=== PATIENT | female | born 1960 | race Caucasian/White ===

== ENCOUNTER 2016-05-13 04:47 | Observation (INO) | payer OTHER ==
[2016-05-13 06:24] LABS: Hematocrit 28 % (35-47); Hemoglobin 9.3 g/dl (12.0-16.0); Mean Corpuscular HGB Conc 33 g/dl (31-36); Mean Corpuscular Hemoglobin 30 pg (27-31); Mean Corpuscular Volume 93 fL (80-97); Mean Platelet Volume 9 um3 (7.4-10.4); Red Blood Count 3.07 10^6/ul (4.0-5.4); Red Cell Distribution Width 15 % (10.5-15); White Blood Count 5.5 10^3/ul (3.5-10.8)
[2016-05-13] MEDS ORDERED: Zolpidem TAB* 10 MG PO PRN (06:33)
[2016-05-13] MEDS ORDERED: Acetaminophen TAB* 325 MG PO PRN (06:33)
[2016-05-13 07:08] LABS: BUN/Creatinine Ratio 4.1 (8-20); Calcium 8.9 mg/dL (8.6-10.3); EGFR African American 5.3 (>60); EGFR Non-African American 4.1 (>60)
[2016-05-13 07:22] LABS: Potassium 2.7 mmol/L (3.5-5.0)
[2016-05-13] MEDS: Heparin VIAL(*) 5000 UNITS/ML VIAL (FIVE THOUSAND) SUBCUT SCH ×2 (07:51→14:40)
[2016-05-13] MEDS ORDERED: Levothyroxine TAB* 100 MCG TAB PO SCH (08:00)
[2016-05-13] MEDS ORDERED: KCL 20 MEQ/100 ML IVPREMIX* 20 MEQ/100 ML BAG IV ONE (08:34)
[2016-05-13] MEDS ORDERED: Potassium Chlor TAB* 20 MEQ TAB.ER PO SCH (09:00)
[2016-05-13] MEDS ORDERED: Sevelamer TAB* 800 MG PO SCH ×2 (09:00)
[2016-05-13] MEDS ORDERED: Clopidogrel TAB* 75 MG PO SCH (09:00)
[2016-05-13] MEDS ORDERED: Calcitriol CAP* 0.25 MCG PO SCH (09:00)
[2016-05-13] MEDS ORDERED: CMC: Escitalopram (NF) 10 MG TAB PO SCH (09:00)
[2016-05-13] MEDS ORDERED: BuPROPion XL* 150 MG TAB.XL PO SCH (09:00)
[2016-05-13] MEDS ORDERED: Famotidine TAB* 20 MG PO SCH (09:00)
[2016-05-13] MEDS ORDERED: Ropinirole TAB* 0.5 MG TAB PO SCH (09:00)
[2016-05-13] MEDS ORDERED: Ranitidine TAB (NF) 150 MG TAB PO SCH (09:00)
[2016-05-13] MEDS: CMC: Midodrine (NF) 5 MG TAB PO SCH ×2 (09:28→14:39)
[2016-05-13] MEDS: KCL 10 MEQ/50 ML IVPREMIX* 10 MEQ/50 ML BAG IV SCH ×2 (09:29→11:02)
[2016-05-13] MEDS: Sevelamer TAB* 800 MG PO SCH ×2 (09:31→12:19)
[2016-05-13 12:06] LABS: BUN/Creatinine Ratio 4.1 (8-20); Calcium 8.7 mg/dL (8.6-10.3); EGFR African American 5.3 (>60); EGFR Non-African American 4.1 (>60); Potassium 2.8 mmol/L (3.5-5.0)
[2016-05-13 12:53] VITALS: BP 93/52
[2016-05-13] MEDS ORDERED: Potassium Chloride LIQUID* 20 MEQ PACKET PO SCH (13:50)
--- NOTE | 2016-05-13 14:00 | HP ---
HISTORY AND PHYSICAL: DATE OF ADMISSION/DICTATION: 05/13/16 CHIEF COMPLAINT: "My potassium is low." HISTORY OF PRESENT ILLNESS: The patient is a 55-year-old woman who presents to [facility] after going to her doctor's for lab work that morning and getting a call at 9:30 telling her potassium was too low and she had to go to ER for evaluation. There, she was found to have a potassium of 2.6 at [facility]. They gave her repletion, but it did not go up. Because they do not have facilities to take care of peritoneal dialysis patients, she was transferred to our hospital for further care. She had no physical complaints whatsoever and feels fine. No chest pain, no shortness of breath, no palpitations. No nausea, vomiting, or diarrhea. No increased frequency or pain on urination. PAST MEDICAL HISTORY: Noted for end-stage renal disease, requiring peritoneal dialysis; hypothyroidism; diabetes mellitus, diet controlled; hyperlipidemia; CVA x2; GERD; insomnia. PAST SURGICAL HISTORY: Significant for cholecystectomy. CURRENT MEDICATIONS: 1. Cipro 500 mg daily. 2. Bupropion 150 mg daily. 3. B-complex vitamin 1 mg in the morning. 3. Sevelamer 800 mg 3 times a day. 4. Ergocalciferol 50,000 units weekly. 5. Zolpidem 10 mg at bedtime. 6. Tylenol 650 mg every 6 hours as needed. 7. Midodrine 10 mg 3 times a day. 8. Plavix 75 mg daily. 9. Calcitriol 0.5 mcg daily. 10. Levothyroxine 100 mcg daily. 11. Lexapro 20 mg daily. 12. Ranitidine 150 mg twice daily. 13. Potassium chloride 20 mEq twice daily. 14. Requip 0.5 mg twice daily. 15. Simvastatin 40 mg at bedtime. ALLERGIES: She has an allergy to KEFLEX. FAMILY HISTORY: Mother in her 60s of heart problems. Father on a plane crash. SOCIAL HISTORY: No tobacco, quit many years ago. No alcohol or recreational drug use. She is on disability. She has 1 child, Ally Cordon, her daughter, who is her healthcare proxy. REVIEW OF SYSTEMS: A 14-point review of systems was completed with the patient. All pertinent positives and negatives are in the history of present illness, otherwise negative. PHYSICAL EXAMINATION GENERAL: A pleasant woman, lying in bed, in no acute distress. VITAL SIGNS: Temperature 97.9 degrees, heart rate 62 beats per minute, respiratory rate 16 breaths per minute, pulse ox 99%, and blood pressure 107/54. HEENT: Normocephalic, atraumatic. Pupils are equal, round, and reactive to light. Moist mucous membranes. NECK: Supple. No JVD, bruits, palpable thyroid, or lymphadenopathy. CHEST: Clear to auscultation and percussion bilaterally. CARDIOVASCULAR: S1, S2 appreciated. ABDOMEN: Positive bowel sounds in all 4 quadrants. Soft, nontender. EXTREMITIES: No cyanosis, clubbing, or edema. NEURO: Alert and oriented x3. Moves all extremities. SKIN: No rashes or abnormalities. LABORATORY DATA: White count 5.5, hemoglobin 9.3, hematocrit 28, platelets 174. Sodium 138, potassium 2.7, chloride 92, CO2 25, BUN 41, creatinine 9.90, glucose 86. ASSESSMENT AND PLAN: 1. Hypokalemia. It is low but not quite that low. If it even get over 3, she can be easily discharged to home, especially this is a dialysis patient. I will give her 20 mEq IV potassium and recheck it later. We will keep her on telemetry unit until then, but I expect she will be able to be discharged later today. 2. End-stage renal disease. Continue dialysis. 3. Hypothyroidism, stable. Continue Synthroid. 4. FEN. Renal diet. 5. DVT prophylaxis. Heparin subcu. 6. The patient is a full code. TIME SPENT: Over 75 minutes was spent on the H and P, more than 40 minutes was spent in direct [id number] contact with the patient in evaluation, physical exam, counseling, and coordination of care. CC: Dr. Rip Lei; Bernardino Ramirez * [id number]/[facility] #: [id number] MTDMelisa
[2016-05-13] MEDS ORDERED: Atorvastatin* 20 MG TAB PO SCH (21:00)
--- NOTE | 2016-05-14 03:17 | DS ---
DISCHARGE SUMMARY: DATE OF ADMISSION: 05/13/16 DATE OF DISCHARGE: 05/13/16 PRIMARY CARE PROVIDER: Dr. Murillo. INSTALLER APPRENTICE: Dr. Lei. CHIEF COMPLAINT: The patient was sent to [facility] by her primary care physician's office due to low potassium levels. PAST MEDICAL HISTORY: 1. End-stage renal disease, on peritoneal dialysis. 2. Hypertension. 3. Hyperlipidemia. 4. Hypothyroidism. 5. Obstructive sleep apnea. 6. 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 MEDICATIONS AT DISCHARGE: Include: 1. Potassium chloride 20 mEq p.o. daily. The patient was given a prescription for 7-day supply. 2. Ambien 10 mg at bedtime. 3. Simvastatin 40 mg at bedtime. 4. Renvela 800 mg 3 times a day. 5. Requip 0.5 mg b.i.d. 6. Zantac 150 mg daily. 7. Potassium chloride 20 mEq. 8. Midodrine 10 mg 3 times a day. 9. Synthroid 100 mcg daily. 10. Lexapro 20 mg daily. 11. Vitamin D 250,000 units p.o. weekly. 12. Plavix 75 mg daily. 13. Calcitriol 0.5 mcg daily. 14. Bupropion XL 150 mg daily. 15. Vitamin B complex with folic acid 1 mg daily. 16. Acetaminophen on a p.r.n. basis. LABORATORY DATA: Most recent laboratory values on 05/13/16 showed sodium of 128 , potassium of 2.8, chloride of 92, carbon dioxide 27, BUN 41, creatinine 9.9. That level of 2.8 of potassium was obtained before the patient's 20 mEq of potassium IV was given. The patient also afterwards was given 40 mEq of potassium p.o. prior to discharge. HOSPITALIZATION COURSE: Elba Cordon is a 55-year-old female with a history of end-stage renal disease, on pertinent dialysis who had a standard laboratory tests done as an outpatient. She was called by her primary care physician with the potassium reported at 2.6. She was directed to [facility] for evaluation. Here, apparently she was given 40 mEq of potassium chloride and was sent to our facility at [facility] for further evaluation. The patient was placed on observation. She received KCl 20 mg p.o. and 20 mEq IV of potassium chloride prior to her repeat lab work done, which showed potassium level of 2.8. The patient is going to be given another 20 mEq of potassium chloride IV and for the p.o. prior to discharge today. I briefly discussed the case with Dr. Lei, who is the patient's tavern car attendant. The patient is going to be discharged on potassium chloride 20 mEq p.o. daily for the next 7 days. She was advised to have another basic metabolic profile drawn on 05/16/16 to follow up on her hypokalemia. The patient stated that she used to be put on potassium supplements, but then it was discontinued in the fall of 2015. She did have a couple of weeks of diarrhea approximately a month ago, but that resolved. Currently, she is not complaining of anything that would contribute to her hypokalemia. She is to continue on regular diet and no low potassium diet as previously taken. PHYSICAL EXAMINATION: At the time of discharge, blood pressure of 93/52, heart rate of 78 and regular, respiratory rate 16, oxygen saturation 96% on room air, temperature 97.5. General: The patient is a very pleasant 55-year-old female, who is in no acute distress. Alert, awake, and oriented x3. HEENT: Head is atraumatic, normocephalic. Eyes: Pupils equal, reactive to light and accommodation. Lungs: Clear. Mucosa moist. Neck: Supple. No JVD, no bruits bilaterally. Cardiovascular: Regular rate and rhythm. No murmur. Respiratory: Clear to auscultation bilaterally. Abdomen: Soft, nontender. Bowel sounds present in all 4 quadrants. Pertinent dialysis catheter in place with no evidence of skin infection. Extremities: There is trace bilateral pedal edema. Pulses are +2 bilaterally. There is no clubbing or cyanosis. The patient has left proximal arm AV fistula that has thrombosed in the past and is negative for thrill. On neuro evaluation, speech clear. Cranial nerves II through XII grossly intact. Motor strength is 5/5 bilaterally. At discharge, the patient is recommended to follow up with primary care provider in 4 to 7 days. She is to have blood drawn on 05/16/16 in regards to her hypokalemia with results to be sent to Dr. Lei. Please note this is a short summary of the patient's hospital stay. Please refer to further medical record for details. CC: Dr. Lei; Dr. Murillo * [id number]/[facility] #: [id number] [facility] CENTERMelisa
[2016-05-14] MEDS ORDERED: Potassium Chloride LIQUID* 20 MEQ PACKET PO SCH (09:00)
== END 2016-05-13 15:14 | disposition home or self-care (01) ==
LOC: MEDTELE 04:47
PROVIDERS: ADMIT Internal Medicine; ATTEND Internal Medicine
DX: E87.6 Hypokalemia (principal); E11.9 Type 2 diabetes mellitus without complications; E78.5 Hyperlipidemia, unspecified; K21.9 Gastro-esophageal reflux disease without esophagitis; Z86.73 Personal history of transient ischemic attack (TIA), and cerebral infarction without residual deficits; G47.00 Insomnia, unspecified; Z79.2 Long term (current) use of antibiotics; Z79.01 Long term (current) use of anticoagulants; Z87.891 Personal history of nicotine dependence; Z23 Encounter for immunization; I12.0 Hypertensive chronic kidney disease with stage 5 chronic kidney disease or end stage renal disease; N18.6 End stage renal disease; Z99.2 Dependence on renal dialysis; G47.33 Obstructive sleep apnea (adult) (pediatric); Z90.5 Acquired absence of kidney
CPT/HCPCS: 36415; 80048; 85025; A9270-GY; G0378; J3480

== ENCOUNTER → 2017-07-26 09:51 | Day surgery (SDC) | payer OTHER ==
--- NOTE | 2017-04-28 16:51 | HP ---
PREOPERATIVE HISTORY AND PHYSICAL: DATE OF ADMISSION: 05/10/17 This patient is scheduled for same-day surgery admission by Dr. Redd, on 05/10/17. DATE OF PREOPERATIVE HISTORY AND PHYSICAL EXAMINATION: 04/26/17. ATTENDING SURGEON: Dr. Se Redd * (dictated by Keiry Dong NP). CHIEF COMPLAINT: Removal of peritoneal dialysis catheter. HISTORY OF PRESENT ILLNESS: The patient is a 55-year-old female known to Dr. Redd; she has endstage renal disease; Dr. Redd, placed a peritoneal dialysis catheter for the patient in October 2014. She states that the catheter has functioned well, but she has had difficulty handling the tubing and the drainage bags due to worsening osteoarthritis in her hands. She has transitioned to hemodialysis and this is performed Monday, , and Monday at the [facility] in [place]. She is followed by Dr. Griggs at that clinic. The patient states that she had a bovine AV graft placed in the left thigh for hemodialysis about 3 months ago in [place] by one of the vascular surgeons. Recently, she was hospitalized from April 11 through April 16 at the [facility] with atypical chest pain and was discharged with a diagnosis of pericarditis with viral syndrome. She was treated and discharged with colchicine. At present, she denies any chest pain, but she reports that she is still short of breath and uses her albuterol inhaler. After reviewing the chart notes from [facility], I scheduled an appointment for followup with her primary care provider, Dr. Murillo from [place] for a preoperative clearance. Her troponin level when she was discharged from the [facility] was 0.04 and I repeated that with her preadmission testing and it was again 0.04; Dr. Redd and Dr. Murillo received those results. I spoke to the patient today, 04/28/17, and she states that her visit with Dr. Murillo yesterday went well and he feels that she can proceed with the recommended surgery of removal of the peritoneal dialysis catheter by Dr. Redd, on 05/10/17. I will obtain a note from Dr. Murillo to that the effect. Dr. Redd discussed the nature of the removal of the peritoneal dialysis catheter, the relevant risks and benefits and today I reviewed the expected postoperative care and recovery. The patient has had a chance to ask questions and stated that she understands the information and is satisfied with the answers given to her questions. She will sign surgical consent on the day of surgery. PAST MEDICAL HISTORY: Significant for endstage renal disease; pericarditis with viral syndrome; hypothyroidism; gastroesophageal reflux disease; diet- controlled type 2 diabetes; hypotension; hyperlipidemia, and depression. She also has a history of atypical chest pain and in 2016 underwent chemical nuclear stress test, which was normal and she has been also followed by Dr. Granado as well as a teacher music in [place] by the name of Dr. Grant. She also has obstructive sleep apnea and uses BiPAP. PAST SURGICAL HISTORY: Peritoneal dialysis catheter placement, October 2014; laparoscopic cholecystectomy, January of 2016; placement of bovine AV hemodialysis graft, left thigh, approximately 3 months ago in [place], [place]; left nephrectomy at age 12; multiple left and right upper and lower extremity dialysis access procedures all of which ultimately thrombosed. She had a renal transplant, which worked for 6 years and failed. She has had partial reconstruction of her right shoulder; cataract extraction, right eye; and repair of fractured right ankle in August of 2015. CURRENT MEDICATIONS: 1. Plavix 75 mg p.o. daily; she will take her last dose on 05/04/17. 2. Baby aspirin 81 mg daily and she will continue that in the perioperative period. 3. Levothyroxine 125 mcg p.o. daily. 4. Simvastatin 80 mg p.o. daily. 5. Ropinirole 0.5 mg 1 tablet at bedtime. 6. Ranitidine 150 mg p.o. b.i.d. 7. Midodrine 10 mg t.i.d. 8. Escitalopram 20 mg p.o. daily. 9. Metoprolol 50 mg one half tablet daily. 10. Albuterol inhaler 2 puffs b.i.d. and p.r.n. 11. Pantoprazole 20 mg p.o. daily. 12. Zolpidem 10 mg q.h.s. p.r.n. 13. Vitamin D 50,000 international units weekly. ALLERGIES: KEFLEX and PENICILLIN has caused rash. FAMILY HISTORY: Negative for anesthesia complications, bleeding, or clotting disorders. SOCIAL HISTORY: She lives with her daughter and is disabled; she is a former smoker. She denies use of alcohol or other substances. REVIEW OF SYSTEMS: As previously mentioned in history of present illness. She had a recent hospitalization at [facility] for pericarditis with viral syndrome. Constitutional: No fevers or chills. No change in weight. Endocrine: Type 2 diabetes, controlled by diet. She occasionally checks her fingerstick blood sugar and today it was 152. She has a history of hypothyroidism, on supplement. Hematologic: She is on Plavix and bruises easily. She had a blood transfusion approximately 2 months ago. Respiratory: Mild dyspnea on exertion improved with use of albuterol inhaler. Cardiovascular : No current anginal chest pain, but has a history of atypical chest pain. Most recent nuclear stress test in 2016 was within normal limits. Ejection fraction estimated at 69%, January 2016. Gastrointestinal: Reflux symptoms, generally controlled with current PPI; she reports diarrhea related to colchicine that was prescribed recently for pericarditis. Genitourinary: She is aneuric and on chronic hemodialysis 3 days a week in [place]. General: She denies any history of deep vein thrombosis or pulmonary embolism. She denies any previous anesthesia complications. She uses BiPAP for sleep apnea. Musculoskeletal: She reports chronic pain in her hands. Neurologic: She has bilateral hearing loss. PHYSICAL EXAMINATION GENERAL SURVEY: The patient is a 56-year-old female, overweight, chronically ill- appearing with skin coloration consistent with chronic anemia related to renal failure. VITAL SIGNS: Height 63 inches, weight 197 pounds, body mass index 34.9. Blood pressure 120/68, pulse 78 and regular, respiratory rate 18. HEENT: Benign. NECK: Supple. No cervical lymphadenopathy. BACK: No CVA tenderness. LUNGS: Breath sounds bilaterally clear and equal. HEART: Obvious pericardial friction rub. Regular rate and rhythm. ABDOMEN: Soft, multiple surgical incisions well healed; peritoneal dialysis catheter with clean exit site. No obvious masses or organomegaly. PELVIC: Exam deferred. RECTAL: Exam deferred. EXTREMITIES: Moves all 4 extremities. Left thigh with strong thrill from hemodialysis AV graft. No significant edema in the lower extremities. NEUROLOGIC: Alert and oriented x3, steady gait. SKIN: Areas of superficial irritation on the upper extremities. No infection. IMPRESSION: Endstage renal disease; the patient wishes to have the peritoneal dialysis catheter removed as she is currently on hemodialysis. PLAN: Same day surgery admission to Dr. Redd's service, on 05/10/17 , for removal of peritoneal dialysis catheter; the patient was advised to take her last dose of Plavix on 05/04/17 and to continue her baby aspirin 81 mg daily in the perioperative period. TIME SPENT: A 120 minutes with greater than 50% in [id number] history taking and coordination of care, which was educating the patient on her recent diagnosis of pericarditis, scheduling a followup appointment with her primary care provider for preoperative clearance. EVETTE DONG NP [id number]/[facility] #: [id number] DEIDRE
[~2017-07-26 09:51] MED LIST: Buffered Lidocaine 0.9% SYRIN* 5 ML/SYR SYRINGE INTRADERM ONE; Bupivacaine 0.5%* 50 ML VIAL ONE; Dexamethasone IV* 4 MG/ML 1 ML (4 MG) IV SLOW PU ONE; Dexamethasone IV* 4 MG/ML 1 ML (4 MG) ONE; Famotidine IV* 10 MG/ML 2 ML (20 mg) IV ONE; Lidocain 1% EPI 1:100,000 * 30 ML MDV ONE; NS 0.45% 1000 ML BAG* 1,000 ML IV SCH; Naloxone* 0.4 MG/ML 1 ML VIAL IV PRN; fentaNYL* 50 MCG/ML 2 ML VIAL (100 MCG VIAL) ONE
--- NOTE | 2017-07-26 12:22 | BRIEFOPN ---
Brief Operative Note - Surgery Procedures: Pre-OP Diagnoses: ESRD Post-op Diagnosis: same Procedure: removal of PD catheter Surgeon: Tramaine Asst: none Anethesia: local EBL: minimal IVF: none Specimen: none Drains: none
[2017-07-26 12:27] VITALS: BP 112/72
--- NOTE | 2017-07-26 17:09 | OP ---
CC: Dr. Jace Murillo; [facility] OPERATIVE REPORT: DATE OF OPERATION: 07/26/17 DATE OF : 64 SURGEON: Se Redd MD MOVIE STUNT PERFORMER: None. ANESTHESIA: Local anesthesia. PRE-OP DIAGNOSIS: End-stage renal disease. POST-OP DIAGNOSIS: End-stage renal disease. OPERATIVE PROCEDURE: Removal of peritoneal dialysis catheter. ESTIMATED BLOOD LOSS: Minimal. FLUIDS: Minimal crystalloid fluid given. SPECIMENS: None. DESCRIPTION OF PROCEDURE: The patient was identified in the preoperative area. She was marked and br ought to the operating room and placed on the operating table in supine position. SCD was placed on the right lower extremity and the patient's abdomen along with exit site of the peritoneal dialysis c atheter was prepped sterilely and draped and the time-out was performed. Injection of lidocaine along the proposed incision along the right lateral midline was performed. Th is was deepened down through the subcutaneous tissue. The tubing of the peritoneal dialysis catheter was grasped and this was followed to the area just at the rectus muscle. Rectus fascia was incised and the cuff was dissected sharply off of the underlying structures. I cut the tubing and removed t he intraperitoneal portion of this. Next, a second incision was made just over the superficial portion of the cuff. This was deepened alejandro n to the cuff, which was sharply removed and then this was also cut and the mid portion of the dialys is catheter was removed. We then irrigated and reapproximated the anterior fascia with running 0 Waldo ryl suture. The distal portion of the peritoneal dialysis catheter easily fell out of the abdomen th rough its exit site. There were no additional tubing to worry about. The wound was irrigated. Coun t was performed and we reapproximated the skin with skin alana followed by sterile dressing. [id number]/[facility] #: [id number]
== END | disposition home or self-care (01) ==
LOC: OR 09:51
PROVIDERS: ATTEND Surgery
DX: N18.6 End stage renal disease (principal); E11.9 Type 2 diabetes mellitus without complications; E03.9 Hypothyroidism, unspecified; I95.9 Hypotension, unspecified; E78.5 Hyperlipidemia, unspecified; F32.9 Major depressive disorder, single episode, unspecified; Z79.01 Long term (current) use of anticoagulants; Z87.891 Personal history of nicotine dependence; Z99.2 Dependence on renal dialysis
CPT/HCPCS: J1100; J3010